=== PATIENT | male | born 1955 | race Asian ===

== ENCOUNTER 2024-03-13 07:42 | Outpatient (CLI) | payer OTHER | END 2024-03-13 07:43 | disposition home or self-care (01) | LOC: CSHULT 07:42 | PROVIDERS: ATTEND Internal Medicine Nephrology | DX: I12.9 Hypertensive chronic kidney disease with stage 1 through stage 4 chronic kidney disease, or unspecified chronic kidney disease (principal); N18.4 Chronic kidney disease, stage 4 (severe); R93.422 Abnormal radiologic findings on diagnostic imaging of left kidney; R93.421 Abnormal radiologic findings on diagnostic imaging of right kidney | CPT/HCPCS: 76770; 93975 ==

== ENCOUNTER 2024-07-20 09:37 | Outpatient (CLI) | payer OTHER | END 2024-07-20 09:38 | disposition home or self-care (01) | LOC: CSHCT 09:37 | PROVIDERS: ATTEND Internal Medicine | DX: Z12.2 Encounter for screening for malignant neoplasm of respiratory organs (principal); Z87.891 Personal history of nicotine dependence; I25.10 Atherosclerotic heart disease of native coronary artery without angina pectoris; I25.84 Coronary atherosclerosis due to calcified coronary lesion | CPT/HCPCS: 71271 ==

== ENCOUNTER 2025-08-17 00:34 | Emergency (ER) | payer OTHER ==
[2025-08-17] MEDS ORDERED: AFRIN NASAL MIST 15 ML BOT ONE (00:42)
[2025-08-17] MEDS ORDERED: Tranexamic Acid 1,000 MG/10 ML VIAL ONE (00:45)
[2025-08-17 01:18] LABS: #Basophils 0.04 10x3/uL (0.0-0.2); #Eosinophils 0.20 10x3/uL (0.0-0.5); #Monocytes 0.90 10x3/uL (0.0-1.1); #Neutrophils 4.39 10x3/uL (1.5-8.4); %Basophils 0.5 % (0.0-2.0); %Eosinophils 2.4 % (0.0-6.0); %Lymphocytes 33.0 % (18.0-47.0); %Monocytes 10.9 % (0.0-10.0); %Neutrophils 53.1 % (40.0-75.0); Hematocrit 32.3 % (38.8-50.0); Hemoglobin 10.2 g/dL (13.5-17.5); Mean Corpuscular Hemoglobin 28.3 pg (27.0-33.0); Mean Corpuscular Volume 89.5 fL (81.2-95.1); Platelet Count 197 10x3/uL (150-450); Red Blood Cell (RBC) Count 3.61 10x6/uL (4.32-5.72); White Blood Cell (WBC) Count 8.27 10x3/uL (3.5-10.5)
[2025-08-17 01:32] LABS: ALT (SGPT) 8 U/L (Less than 45); AST (SGOT) 14 U/L (11-34); Albumin 3.9 g/dL (3.1-4.5); Alkaline Phosphatase 41 U/L (40-110); Anion Gap 15 mmol/L (10-20); BUN (Urea Nitrogen) 79 mg/dL (8.4-25.7); Bilirubin, Total 0.3 mg/dL (0.3-1.2); Calc. Creatinine Clearance 0 mL/min (70-130); Calcium 10.5 mg/dL (7.8-10.44); Carbon Dioxide 23 mmol/L (23-31); Chloride 105 mmol/L (98-107); Globulin 4.1 g/dL (2.4-3.5); Glucose 146 mg/dL (80-115); Potassium 4.2 mmol/L (3.5-5.1); Sodium 139 mmol/L (136-145)
== END 2025-08-17 02:10 | disposition home or self-care (01) ==
LOC: CSHERS 00:34
DX: R04.0 Epistaxis (principal); I12.9 Hypertensive chronic kidney disease with stage 1 through stage 4 chronic kidney disease, or unspecified chronic kidney disease; N18.9 Chronic kidney disease, unspecified
CPT/HCPCS: 30901; 36415; 80053; 85025; 99283